=== PATIENT | male | born 1955 | race Caucasian/White ===

== ENCOUNTER → 2022-01-12 | Outpatient (CLI) | payer MEDICARE | LOC: KOH-I 11:39 | DX: M54.50 Low back pain, unspecified (principal); M47.816 Spondylosis without myelopathy or radiculopathy, lumbar region | CPT/HCPCS: 72070; 72100 ==

== ENCOUNTER 2022-01-28 16:13 | Observation (INO) | payer MEDICARE ==
[~2022-01-28] VITALS: Ht 180.3 cm; Wt 95.7 kg
[2022-01-28 17:34] LABS: HEMOGLOBIN 15.7 gm/dl (14.0-17.5); RED BLOOD COUNT 4.96 M/UL (4.20-5.50); WHITE BLOOD COUNT 15.6 K/UL (4.5-11.0)
[2022-01-28 18:07] LABS: BUN/CREATININE RATIO 15 (0-10)
[2022-01-29] MEDS ORDERED: BENAZEPRIL HCL20 MG PO (10:55)
[2022-01-29] MEDS ORDERED: AZITHROMYCIN500 MG PO (10:55)
[2022-01-29] MEDS ORDERED: CILOSTAZOL100 MG PO (10:56)
[2022-01-29] MEDS ORDERED: ZINC50 M1 PO (10:56)
[2022-01-29] MEDS ORDERED: PROTONIX 40 MG40 M1 PO (10:56)
[2022-01-29] MEDS ORDERED: VITAMIN D350 MCG PO (10:56)
[2022-01-29] MEDS ORDERED: TYLENOL 8 HOUR650 MG PO (10:57)
[2022-01-29] MEDS ORDERED: ROBAXIN 750 MG750 MG PO (10:57)
[2022-01-30 08:03] LABS: HEMOGLOBIN 14.3 gm/dl (14.0-17.5); RED BLOOD COUNT 4.59 M/UL (4.20-5.50)
[2022-01-30 08:25] LABS: BUN/CREATININE RATIO 16 (0-10)
== END 2022-01-30 17:55 | disposition home or self-care (01) ==
LOC: ER1 16:13 → CDU 21:25 → MED SURG 4 21:25
PROVIDERS: Internal Medicine; Physician Assistant; ADMIT Internal Medicine
DX: R55 Syncope and collapse (principal); N17.9 Acute kidney failure, unspecified; I10 Essential (primary) hypertension; I25.10 Atherosclerotic heart disease of native coronary artery without angina pectoris; E78.5 Hyperlipidemia, unspecified; R10.9 Unspecified abdominal pain; E11.9 Type 2 diabetes mellitus without complications; K21.9 Gastro-esophageal reflux disease without esophagitis; M19.90 Unspecified osteoarthritis, unspecified site; J44.9 Chronic obstructive pulmonary disease, unspecified; E86.0 Dehydration; G89.29 Other chronic pain; F17.210 Nicotine dependence, cigarettes, uncomplicated; Z79.899 Other long term (current) drug therapy; Z88.0 Allergy status to penicillin
CPT/HCPCS: ECHO; 36415; 70450; 70551; 71275; 76705; 80048; 80053; 81001; 82550; 82553; 82607; 82746; 83036; 83735; 84100; 84439; 84443; 84484; 85025; 85027; 85610; 86140; 93005; 93306; 93880; 96372; 96374; 99285; G0378; J1650; J2270; Q9967